=== PATIENT | male | born 1960 | race Caucasian/White ===

== ENCOUNTER 2020-06-11 16:24 | Emergency (ER) | payer OTHER ==
[~2020-06-11] VITALS: Ht 185.4 cm; Wt 136.1 kg
[2020-06-11 16:35] VITALS: Ht 185.4 cm; Wt 136.1 kg
[2020-06-11 17:28] LABS: BASOPHIL % 0.3 % (0.2-1.5); PLATELET COUNT 259 x10^3mcL (152-348)
[2020-06-11 17:30] LABS: CALCIUM 8.7 mg/dL (8.5-10.1); CARBON DIOXIDE 27.8 mmol/L (21-32); CHLORIDE SERUM 102 mmol/L (98-107); CREATININE SERUM 1.1 mg/dL (0.7-1.3); GFR1 > 60 mL/min; GLUCOSE SERUM 178 mg/dL (74-106); POTASSIUM SERUM 4.3 mmol/L (3.5-5.1); SODIUM SERUM 138 mmol/L (136-145)
[2020-06-11 17:33] LABS: ALKALINE PHOSPHATASE 60 U/L (46-116); ALT/SGPT 108 U/L (16-63); AST/SGOT 39 U/L (15-37); BILIRUBIN TOTAL 1.3 mg/dL (0.20-1.00); LIPASE 250 IU/L (73-393); TOTAL PROTEIN, SERUM 6.6 g/dL (6.4-8.2)
[2020-06-11 17:34] LABS: ALBUMIN 3.2 g/dL (3.4-5.0)
[2020-06-11 18:09] LABS: UA SPECIFIC GRAVITY >=1.030 (1.005-1.035); microscopic required? YES; urine erythrocyte 2+ (NEGATIVE)
[2020-06-11] MEDS ORDERED: CEPHALEXIN500 MG PO (19:31)
[2020-06-11 19:45] VITALS: BP 143/9
== END 2020-06-11 19:45 ==
LOC: ED 16:24
PROVIDERS: Emergency Medicine
DX: N39.0 Urinary tract infection, site not specified (principal); E11.9 Type 2 diabetes mellitus without complications; I50.9 Heart failure, unspecified; I11.0 Hypertensive heart disease with heart failure; J44.9 Chronic obstructive pulmonary disease, unspecified; K21.9 Gastro-esophageal reflux disease without esophagitis; Z88.5 Allergy status to narcotic agent
CPT/HCPCS: J0696; J1885; J2270; J2405; J7030; J7060